=== PATIENT | female | born 1955 | race Two or more races ===

== ENCOUNTER 2025-02-09 10:16 | Inpatient (IN) | payer MEDICAID, SELFPAY ==
[2025-02-09] VITALS (12 sets, daily range): BP systolic 157–226; BP diastolic 64–96; PULSE 57–150; RESP 17–94; TEMP 36.6–37; O2SAT 92–95; BMI 29.8
--- NOTE | 2025-02-09 11:29 | XR_ITS ---
Examination: PA lateral chest 2 views TECHNIQUE: Upright PA lateral chest 2 views Exam date and time: February 09, 2025 1142 hours INDICATIONS: Chest pain today. FINDINGS: Mild prominence of ventricle Minor atelectasis left base No lobar pneumonia or pulmonary edema IMPRESSION: No lobar pneumonia or pulmonary edema
--- NOTE | 2025-02-09 11:33 | EDNOTE_ITS ---
ED Chest Pain RME/HPI General Chief Complaint: Chest Pain Stated Complaint: CHEST PAIN AND SOB Time Seen by Provider: 02/09/25 11:22 Arrival date/time: 02/09/25 10:16 69 year old female present to emergency room via EMS with PMHX of HTN, c/o of chest pain starting yesterday but worsen this morning Pt report being complaint with her blood pressure medication and has not had a stress test in the past. denies any history of stress test or mi. LOCATION: Chest SEVERITY: Symptoms are described as being severe with limitations on activities of daily living CONTEXT: The patient is unable to identify any inciting events. DURATION/TIMING: The symptoms started approximately 1 day ASSOCIATED SYMPTOMS: The patient is unable to identify any other associated symptoms. MODIFYING FACTORS: The patient is unable to identify any alleviating or aggravating symptoms. PERTINENT ROS: no fevers, no cough, no pleuritic pain, no ripping or tearing sensations, denies any lower extremity edema and no unilateral swelling, no nausea,vomiting, diarrhea, no dizziness/headache no rash no loc/syncope episode no abd/back pain REVIEW OF SYSTEMS: See History of Present Illness - with the exception of those mentioned in the history of present illness, all other systems reviewed and reported as negative GENERAL: In general the patient is awake, interactive, in an emergency department gurney. HEAD/EYES/EARS/NOSE/THROAT: normo-cephalic, atraumatic, mucus membranes are moist, anicteric, palpebral conjunctiva is pink, trachea is midline. CARDIOVASCULAR: regular rate and regular rhythm, no murmurs, heart sounds are not distant, strong pulses in all four extremities that are equal and symmetric bilateral upper and lower extremities, normal capillary refill. CHEST/PULMONARY: normal chest rise and fall, good air movement, clear to auscultation bilaterally, normal inspiratory to expiratory ratios without evidence of respiratory distress. NECK: No midline/Paraspinal tenderness, no step off ROM/Strenght intact No Kernig and bruzinski sign. No trauma ABDOMEN: soft, not tender, no masses appreciated BACK: normal range of motion without pain. NEUROLOGICAL: cranio-facial features are symmetric, moves all four extremities equally without obvious limitations or weakness. EXTREMITY: no tenderness to palpation over the long bones or large joints of the bilateral upper and lower extremities, no joint swelling, no joint erythema, no signs of trauma, no unilateral leg swelling and no peripheral edema. SKIN: warm, dry, well-perfused, no jaundice, no rash, no telangiectasias or petechia. PSYCH: calm, cooperative, no evidence of psychosis or agitation Related Data Previous Rx's ?Medication ?Instructions ?Recorded cyclobenzaprine 10 mg tablet 10 mg PO TID PRN muscle s pasm #15 01/31/21 tabs ibuprofen 600 mg tablet 600 mg PO Q6H PRN pain #30 t abs 01/31/21 tramadol 37.5 mg-acetaminophen 325 1 tab PO BID PRN pa in #30 tabs 07/21/22 mg tablet (Ultracet) Allergies Allergy/AdvReac Type Severity Reaction Status Date / Time No Known Allergies Allergy Verified 07/21/22 11:56 Course Course Course Narrative: Basic labs, Cxr, EKG, hydralazine 10mg aspirin 324 Quality Measures none Orders Category Date Time Status EKG (ED ONLY) *Do not use* NOW Care 02/09/25 12:56 Completed Consult to Cardiology Stat Cons 02/09/25 13:06 Ordered EKG (ED Only) Stat Exams 02/09/25 12:56 Draft XR chest 2V Stat Exams 02/09/25 11:29 Completed BNP [B-Type Natriuretic Peptide] Stat Lab 02/09/25 12:03 Completed CBC Stat Lab 02/09/25 12:03 Completed CMP [Comprehensive Metabolic Panel] Stat Lab 02/09/25 12:03 Completed Lipase Stat Lab 02/09/25 12:03 Completed Mag [Magnesium] Stat Lab 02/09/25 12:03 Completed Troponin I Stat Lab 02/09/25 12:03 Completed Troponin I Stat Lab 02/09/25 13:30 Ordered Aspirin Chew Med 02/09/25 12:58 Discontinued 324 mg PO X1 ONE Magnesium Oxide [Mag-Ox 400] Med 02/09/25 12:50 Discontinued 400 mg PO X1 ONE hydrALAZINE INJ [Apresoline Inj] Med 02/09/25 11:34 Discontinued 10 mg IV X1 ONE Reevaluation(s) Reevaluation #1: pt report chest pain, ongoing and comfortable to stay in hosptial for evaluation Vital Signs Vital signs: Vital Signs Temperature 98.6 F 02/09/25 10:55 Pulse Rate 89 02/09/25 10:55 Respiratory Rate 18 02/09/25 10:55 Blood Pressure 226/85 H 02/09/25 10:55 Pulse Oximetry (%) 95 02/09/25 10:55 Oxygen Delivery Method Room Air 02/09/25 10:55 Procedures -ED EKG Interpretation #1: Date of EK02/09/25 Time of EK:54 Rate: 125 Interpretation: Reviewed by me EKG Impression: Sinus tachycardia #2: Date of EK02/09/25 Rate: 74 Interpretation: Reviewed by me EKG Impression: Normal sinus rhythm, No acute ST-T changes, No ectopy, No ischemic changes, Normal QRS and Normal intervals Chest Pain MDM Narrative MDM Narrative:: DISPOSITION: Emergency Department nursing documentation was reviewed including triage complaint, associated symptoms, administration of medications, response to therapy and vital signs. Given the history, physical exam, and review of laboratory and imaging studies the patient is determined to be unsafe for discharge and is being moved into the hospital for further diagnostic tests, treatments, stabilization, and monitored response to therapy. I communicated the history, physical exam, pertinent laboratory and imaging studies to the inpatient physician. The inpatient physician has access to electronic copies of all emergency department laboratory testing and imaging studies as well as medications ordered and administered. Patient data External records reviewed:: [facility] previous records Clinical information provided by:: patient and EMS Social determinants that could affect healthcare access:: none Patient has the following chronic illnesses:: HTN How is presenting disease/condition affected by chronic disease/condition?: exacerbated by Evaluation data The following diagnostics were reviewed and interpreted by me:: lab results, radiology exam(s) and EKG tracing(s) Lab and/or radiology exams considered but not ordered:: n/a Interpretation Summary: cbc: wnl cmp wnl trop .086 mg 1.4 given 400mg lipase cxr:nad Medications / Prescriptions Medications or Prescriptions considered but not ordered:: n/a Medication administrations:: Medication Administration History Discontinued Medications Aspirin (Aspirin 81 Mg Chew) 324 mg PO X1 ONE Stop: 02/09/25 12:59 Last Admin: 02/09/25 13:08 Dose: 324 mg Documented By: LP Hydralazine HCl (Hydralazine Inj 20 Mg/Ml Vial) 10 mg IV X1 ONE Stop: 02/09/25 11:35 Last Admin: 02/09/25 12:07 Dose: 10 mg Documented By: LP Magnesium Oxide (Magnesium Oxide 400 Mg Tablet) 400 mg PO X1 ONE Stop: 02/09/25 12:51 Last Admin: 02/09/25 13:08 Dose: 400 mg Documented By: TRA as stated above Consultations Consultation(s) initiated? (list below): Yes Consultation #1 (Physician, Specialty, Details): [address] Bradshaw, will come in for consult Consultation #2 (Physician, Specialty, Details): [address] Rodriguez accept patient for admission Diagnosis Chest Pain Differential Diagnosis: pneumothorax, stable angina, unstable angina pectoris, atypical chest pain, st elevation myocardial infarction, costochondritis, chest pain and biliary colic Most likely diagnosis given after review of the tests above:: nstemi Admission Indicated Admission indicated?: indicated Admission Request Was there a request for admission?: Yes Admission Attestation Admission request attestation: Discussed case with [hamilton ] from Hospitalist service regarding admission. Discussed patients ED course, exam findings, labs, and radiology results. The Hospitalist [agrees,] to accept the patient for admission. Disposition Plan Disposition Plan: Admit Discharge Plan Plan Patient Disposition: Admit Acute Care w/in Hospital Prescriptions/Referrals Prescriptions/Med Rec: No Action ibuprofen 600 mg tablet 600 mg PO Q6H PRN (Reason: pain) Qty: 30 0RF cyclobenzaprine 10 mg tablet 10 mg PO TID PRN (Reason: muscle spasm) Qty: 15 0RF tramadol-acetaminophen [Ultracet] 37.5-325 mg tablet 1 tab PO BID PRN (Reason: pain) Qty: 30 0RF Referrals: Katharine Erickson FNP [Primary Care Provider] - In 1 week Problem List Clinical Impression: Non-ST elevation LA (NSTEMI) Patient/Caregiver Discharge Instructions Print Language: Latvian Stand Alone Forms: Christina Award Info., Patient Portal Info Letter
[2025-02-09] MEDS: hydrALAZINE INJ 20 MG/ML VIAL 10 MG IV (12:07)
[2025-02-09 12:20] LABS: Basophils # (Auto) 0.1 Thou/mm3 (0.0-0.2); Basophils % (Auto) 1 % (0-2.5); Eosinophils % (Auto) 1 % (0-10); Hematocrit 33.2 % (36.0-46.0); Immature Granulocytes % (Auto) 0 % (0-0); Immature Granulocytes Auto 0.03 Thou/mm3 (0.00-0.00); Lymphocytes # (Auto) 1.4 Thou/mm3 (1.0-4.8); Lymphocytes % (Auto) 17 % (10-50); Mean Corpuscular HGB Conc 33.1 g/dl (31.0-37.0); Mean Corpuscular Hemoglobin 27.8 pg (25.0-35.0); Mean Corpuscular Volume 84 fL (80-100); Monocytes # (Auto) 0.4 Thou/mm3 (0.0-0.8); Monocytes % (Auto) 5 % (0-12); Neutrophils # (Auto) 6.6 Thou/mm3 (1.8-7.7); Neutrophils % (Auto) 77 % (37-80); Nucleated Red Blood Cell % 0 /100 WBC (0); Platelet Count 292 Thou/mm3 (140-440); RDW Standard Deviation 42.3 fL (36.4-46.3); Red Blood Count 3.95 Miln/mm3 (4.00-5.20); White Blood Count 8.6 Thou/mm3 (3.6-11.0)
[2025-02-09 12:41] LABS: B-Type Natriuretic Peptide 195 pg/mL (0-100)
[2025-02-09 12:45] LABS: Alanine Aminotransferase 28 U/L (10-49); Albumin, Serum 4.1 gm/dL (3.4-4.8); Albumin/Globulin Ratio 1.6 (1.2-2.2); Alkaline Phosphatase 56 U/L (46-116); Anion Gap 10 (7-16); Aspartate Amino Transferase 31 U/L (0-34); BUN/Creatinine Ratio 22 Ratio (12-20); Bilirubin,Total 1.1 mg/dL (0.3-1.2); Blood Urea Nitrogen 13 mg/dL (9-23); Calcium 9.4 mg/dL (8.3-10.6); Calcium (Corrected) 9.4 mg/dL (8.5-10.1); Carbon Dioxide 26.9 mMol/L (20.0-31.0); Chloride 108 mMol/L (98-107); Creatinine (Component) 0.6 mg/dL (0.6-1.3); Estimated Creatinine Clearance 82.1 mL/min (>60); Globulin 2.5 gm/dL (2.3-3.5); Glucose 91 mg/dL (74-106); Lipase 35 U/L (12-53); Magnesium 1.4 mg/dL (1.6-2.6); Osmolality,Calculated 288 (275-295); Potassium 3.6 mMol/L (3.4-5.1); Sodium 145 mMol/L (136-145); Total Protein 6.6 gm/dL (5.7-8.2); eGFR > 60 See Note
[2025-02-09 12:47] LABS: Troponin I 0.086 ng/mL (0.0-0.045)
--- NOTE | 2025-02-09 12:52 | PC.NURSE ---
CALL FROM [facility] IN LAB; TROPONIN 0.09. PROVIDER JANINE LINDSAY.
--- NOTE | 2025-02-09 12:56 | EKG_ITS ---
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
[2025-02-09] MEDS: MAGNESIUM OXIDE 400 MG TABLET PO (13:08)
[2025-02-09] MEDS: ASPIRIN 81 MG CHEW 324 MG PO (13:08)
--- NOTE | 2025-02-09 14:00 | PD.RESCONSUL ---
HPI Data of Consult Primary Care Provider: LUCIE Grace Consult Narrative History of present illness: Mr. Mensah is a 69-year-old female with past medical history of hypertension, dyslipidemia, depression, seasonal allergies and personal history of hemorrhage status post mathieu hole procedure 10 to 15 years ago at [place] who presented to [facility] emergency department on 02/09/2025 with a chief complaint of left-sided chest pain. Patient reported that her chest pain started at around 8:30 AM this morning, localized to left side nonradiating /10 describes it as a pressure-like sensation and palpitations has no alleviating or aggravating symptoms, reports that she currently still has the chest pain is 6/10 on the left side. Patient reports taking nitroglycerin tablet for chest pain with no improvement in her symptoms. She also complains of elevated blood pressure, reports being compliant with her hypertensive medications, took her last medications this morning, follows primary care physician. Patient is unable to provide details about her home medications, does report taking antihypertensive meds, statin, aspirin daily and medication for constipation as needed. Patient otherwise denies any shortness of breath, orthopnea, bilateral lower extremity swelling, dizziness, syncope, near syncope, headache, nausea, vomiting, abdominal pain and recent falls. ED Course: ED Vitals: On presentation in ED blood pressure 226/85 heart rate 89, respiratory rate 18, temp 98.6, O2 sat 95 on room air ED Labs: ED labs significant for RBC 3.95, hemoglobin 11.0, hematocrit 33.2, chloride 108, magnesium 1.4, BNP 195 troponin 0.086 ED Imaging:EKG in ED shows sinus rhythm, heart rate [address]-T changes noted.Chest x-ray in ED shows no lobar pneumonia or pulmonary edema, mild prominence of ventricle seen. ED Treatment:Patient was given hydralazine 10 mg IV x 1, magnesium oxide 400 mg p.o. x 1 and aspirin 324 mg x 1 in emergency department. Cardiology was consulted due to elevated troponin and typical chest pain. cc:: cc: Review of Systems Review of Systems Narrative Review of Systems: ROS: -CONSTITUTIONAL: Denies weight loss, fever and chills. -HEENT: Denies changes in vision and hearing. -RESPIRATORY: Denies SOB and cough. -CV: Positive for palpitations and Chest Pain. -GI: Denies abdominal pain, nausea, vomiting and diarrhea. Positive for constipation. -: Denies dysuria and urinary frequency. -MSK: Denies myalgia and joint pain. -SKIN: Denies rash and pruritus. -NEUROLOGICAL: Denies headache and syncope. -PSYCHIATRIC: Denies recent changes in mood. Denies anxiety and depression. Past Medical History Past Medical History Comments PMH COMMENT: PMH: Positive for hypertension, dyslipidemia, seasonal allergies, ?depression/anxiety PSHx: [place] hole procedure at [place] to drain hemorrhage 10 to 15 years ago, denies any fall/trauma at that time reported was seen at [facility] and was transferred to [place]. Allergies: Food allergies-Milk, some fruits. 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 Conversational and non-toxic appearing. HEENT: Normocephalic, atraumatic, mucous membranes moist. Heart: Regular rate and rhythm, + murmur in aortic area. Lungs: Clear to auscultation with no wheezing or crackles. Abdomen: Soft, nondistended, nontender, positive bowel sounds. ?No guarding or rebound tenderness. Neurologic: Alert and oriented x3, no gross neurological deficit, and patient able to move all 4 extremities. Extremities: No edema. Skin: No rash or ecchymoses. Results Labs 02/09/25 12:03 02/09/25 12:03 Labs: Short CBC 02/09/25 Range/Units 12:03 WBC 8.6 (3.6-11.0) Thou/mm3 Hgb 11.0 L (12.0-16.0) g/dL Hct 33.2 L (36.0-46.0) % Plt Count 292 (140-440) Thou/mm3 BMP 02/09/25 12:03 Sodium 145 Potassium 3.6 Chloride 108 H Carbon Dioxide 26.9 BUN 13 Creatinine 0.6 Glucose 91 Calcium 9.4 Cardiac Enzymes 02/09/25 Range/Units 12:03 Troponin I 0.086 H* (0.0-0.045) ng/mL Liver Function 02/09/25 Range/Units 12:03 Total Bilirubin 1.1 (0.3-1.2) mg/dL AST 31 (0-34) U/L ALT 28 (10-49) U/L Alkaline Phosphatase 56 (46-116) U/L Albumin 4.1 (3.4-4.8) gm/dL Quality Measures Quality Measures none Advance care planning discussed with:: patient Medications Home Medications and Allergies Allergies Allergy/AdvReac Type Severity Reaction Status Date / Time No Known Allergies Allergy Verified 07/21/22 11:56 Visit Medications Discontinued Medications Aspirin (Aspirin 81 Mg Chew) 324 mg PO X1 ONE Stop: 02/09/25 12:59 Last Admin: 02/09/25 13:08 Dose: 324 mg Hydralazine HCl (Hydralazine Inj 20 Mg/Ml Vial) 10 mg IV X1 ONE Stop: 02/09/25 11:35 Last Admin: 02/09/25 12:07 Dose: 10 mg Magnesium Oxide (Magnesium Oxide 400 Mg Tablet) 400 mg PO X1 ONE Stop: 02/09/25 12:51 Last Admin: 02/09/25 13:08 Dose: 400 mg Assessment & Plan Plan Assessment and Plan: Summary: Mr. Mensah is a 69-year-old female with past medical history of hypertension, dyslipidemia, depression, seasonal allergies and personal history of hemorrhage status post mathieu hole procedure 10 to 15 years ago at [place] who presented to [facility] emergency department on 02/09/2025 with a chief complaint of left-sided chest pain. Patient admitted to hospital for ACS, cardiology consulted for recommendations. #Elevated Troponins - Mostly NSTEMI type II -Mostly secondary to uncontrolled blood pressure. #Acute coronary syndrome #Atypical chest pain Patient presented with left-sided nonradiating chest pain not alleviated with nitroglycerin at home, describes it as a pressure-like sensation on left side of chest 10 on 10 and has improved to 6/10. Not related to exertion or rest. constant pain. sublingual nitroglcerin did not help. EKG in ED shows sinus rhythm, no acute ST?T changes, troponin elevation noted at 0.086->0.187. Mostly secondary to uncontrolled blood pressure. Patient did have blood pressure 226/85 on presentation, on assessment at bedside patient's systolic blood pressure still more than 200, was given hydralazine 10 mg IV x 1 in emergency department, patient continues to complain of chest pain. HAROON score- 85 points, low risk category, less than 1% in hospital mortality, low risk 6-month post discharge mortality, less than 3% probability of post discharge to 6 months Patient is unable to provide details of home medication for high blood pressure, per med reconciliation review patient on hydralazine 50 mg 3 times daily, hydrochlorothiazide 50 mg daily, irbesartan 300 mg daily, metoprolol succinate 200 mg daily, nitroglycerin 0.4 mg as needed, aspirin 81 mg daily, spironolactone 25 mg daily. Recommendations: -Trend troponin every 6 hour -Consider repeating EKG/troponin if patient develops worsening chest pain -Will follow serial troponin level. -Aspirin 81 mg daily -Control blood pressure, consider starting patient on losartan/HCTZ 50?12.5 combination pill and Coreg 12.5 mg twice daily. -Ordered echocardiogram to assess for any regional wall abnormalities, LV/RV function. -Ordered TSH, free T4, lipid panel and A1c for risk stratification #Hypertensive emergency #Hypertension Patient had blood pressure 226/85 on presentation, per med reconciliation review patient on hydralazine 50 mg 3 times daily, hydrochlorothiazide 50 mg daily, irbesartan 300 mg daily, metoprolol succinate 200 mg daily, nitroglycerin 0.4 mg as needed, aspirin 81 mg daily, spironolactone 25 mg daily. Patient currently denies any other symptoms other than chest pain, denies any headache, does have personal history of hemorrhage status post mathieu hole procedure 10 to 15 years ago at [place]. Recommendations: -Underlying elevated troponin and chest pain possibly secondary to hypertensive emergency, suspicion of NSTEMI type II -Control blood pressure, consider starting patient on losartan/HCTZ 50?12.5 combination pill and Coreg 12.5 mg twice daily. -Reduce blood pressure gradually to avoid organ ischemia, lower mean arterial pressure no more than 20-25% in the next couple of hours, monitor closely. -Consider CT scan of head if patient develops worsening headache -Pending med reconciliation. #Normocytic normochromic anemia Patient's hemoglobin 11.0, hematocrit 33.2, RBC 3.95, MCV 84, MCH 27.8, MCHC 33.1 -Consider outpatient workup #Electrolyte imbalance #Hypomagnesemia -Replace electrolytes as needed -Keep potassium more than 4 and magnesium more than 2 at all times #Dyslipidemia Started on atorvastatin 80 mg at bedtime, continue Follow lipid panel in a.m. #Depression Home medication resumed by primary team Thank you for the consult and allowing to participate in the care of the patient. Cardiology will continue to follow. Case discussed with Attending Dr. Bradshaw. Daniel Matias PGY1 Disclaimer: This note was dictated by speech recognition. 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 Attending Provider Attestation/Addendum I have personally seen and examined the patient separately on the above date of service and discussed the plan of care with the resident. I reviewed the resident Dr. Daniel Matias consultation note and agree with the resident findings and plan in the note above and have also edited the documentation to reflect my findings and plan. Bob Bradshaw M.D. Interventional Cardiology
--- NOTE | 2025-02-09 14:11 | ECHO_ITS ---
Transthoracic Echo Report Ht (in): 62 Wt (lb): 163 Exam Location: Portable Status: Emergency Director Of Special Events: CAMACHO Fonseca^^^^ Indications: Procedure Performed: BP: / HR: 63 Technical Quality: Fair MEASUREMENTS (Male / Female) Normal Values 2D ECHO LV Diastolic Diameter PLAX 4.3 cm 4.2 - 5.9 / 3.9 - 5.3 cm LV Systolic Diameter PLAX 3.0 cm IVS Diastolic Thickness 1.0 cm 0.6 - 1.0 / 0.6 - 0.9 cm LVPW Diastolic Thickness 1.1 cm 0.6 - 1.0 / 0.6 - 0.9 cm LV Relative Wall Thickness 0.5 LVOT Diameter 1.6 cm Aortic Root Diameter 2.5 cm LA Systolic Diameter LX 4.3 cm 3.0 - 4.0 / 2.7 - 3.8 cm LA Volume Index 48.3 cm?/m? 16 - 28 cm?/m? DOPPLER AV Peak Velocity 173.0 cm/s AV Peak Gradient 12.0 mmHg AV Mean Gradient 7.0 mmHg AV Velocity Time Integral 44.9 cm LVOT Peak Velocity 107.0 cm/s LVOT Peak Gradient 4.6 mmHg LVOT Velocity Time Integral 27.3 cm LVOT Cardiac Index 1895.9 cm?/min?m? AV Area Cont Eq vti 1.2 cm? AV Area Cont Eq pk 1.2 cm? MV Peak Velocity 125.0 cm/s MV Peak Gradient 6.3 mmHg MV Mean Velocity 69.2 cm/s MV Mean Gradient 2.0 mmHg MV Area PHT 2.4 cm? MR Peak Velocity 413.0 cm/s MR Peak Gradient 68.2 mmHg Mitral E Point Velocity 80.1 cm/s Mitral A Point Velocity 71.8 cm/s Mitral E to A Ratio 1.1 LV E' Lateral Velocity 6.1 cm/s Mitral E to LV E' Lateral Ratio 13.1 LV E' Septal Velocity 6.5 cm/s Mitral E to LV E' Septal Ratio 12.3 TR Peak Velocity 253.5 cm/s TR Peak Gradient 25.7 mmHg PV Peak Velocity 90.4 cm/s PV Peak Gradient 3.3 mmHg RVOT Peak Velocity 54.7 cm/s FINDINGS Left Ventricle Normal left ventricular size, wall thickness, systolic function with no obvious regional wall motion abnormalities. There is grade II diastolic dysfunction of the left ventricle (pseudonormal filling pattern). . The ejection fraction is visually estimated at 60-65 %. Right Ventricle The right ventricle is normal in size and systolic function. The estimated right ventricular systolic pressure, 27 mmHg. Left Atrium Mildly increased left atrial volume 48.3 mL/m?. Right Atrium The right atrium is normal by two-dimensional imaging, color flow and Doppler imaging with no structural abnormalities, no thrombus formation present. Atrial Septum The interatrial septum appears normal with no evidence of a shunt. Aorta The aorta is normal by two-dimensional, color flow and Doppler interrogation. Mitral Valve Mild thickening of the mitral valve leaflets.mild mitral regurgitation. Mild mitral annular calcification. Aortic Valve Aortic valve sclerosis. Tricuspid Valve There is mild tricuspid valve regurgitation. Pulmonic Valve The pulmonic valve is not well visualized. There is no significant pulmonic valve regurgitation. Vessels The pulmonary artery appears normal. The inferior vena cava pulmonary and hepatic veins appear normal. Pericardium The pericardium is normal by two-dimensional imaging. There is no significant pericardial effusion. CONCLUSIONS Indication: Chest pain and elevated troponins Normal LV size and function with an EF of 60 to 65%. Stage II diastolic dysfunction. Mild LVH Normal RV size and function. Estimated RVSP normal at 30 mmHg. Mildly dilated LA, mild MR and mild MAC. Mild aortic sclerosis without stenosis. Mild TR Bob Bradshaw (Electronically Signed) Final Date: 10 February 2025 08:18
--- NOTE | 2025-02-09 14:19 | ESHP_ITS ---
<Statement entered by Chantelle Magana MD - 02/09/25 16:28> I discussed with and supervised the purchasing internship physician who took care of this patient. I personally saw and examined the patient and discussed the assessment and plan with the entire medicine team, including my attending , I agree with most of the assessment and plan as documented below Patient is a 69-year-old woman with past medical history of hypertension, CKD, history of CVA who came to the ED with chief complaint of chest pain and will be admitted for further workup of unstable angina and hypertensive emergency. Patient's states her home nitroglycerin SL has helped relieve the pain significantly. V/S in the ED was 226/85 with HR of 89, saturating 94% no RA. CXR was unremarkable. Troponins are uptrending, will f/u Q6H. Cardiology consulted, pending recs. Will resume most of her home anti-hypertensives and pain meds PRN. Chantelle Magana, PGY-2 <Statement entered by Coco Zeng MD - 02/09/25 15:26> I discussed with and supervised the purchasing internship physician who took care of this patient. I personally saw and examined the patient and discussed the assessment and plan with the entire medicine team, including my attending Dr. Rodriguez, I agree with the assessment and plan as documented below 69-year-old woman with past medical history of hypertension, CKD, history of CVA who came to the ED with chief complaint of chest pain. Patient stated that her symptoms started this morning as she was feeling weird with tremors and later she developed nausea associated to chest pain that she describes as stabbing sensation and pressure-like pain 10/10 associated to left upper extremity numbness. 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 Patient stated that she took 2 nitro pills that relieve her pain. On admission patient blood pressure was around 226/85 with heart rate 89 saturating 95% on room air, troponins 0.086, BNP 195, EKG shows sinus rhythm without ST changes or T wave inversions per my interpretation. Chest x-ray was unremarkable. At the ED patient received hydralazine IV x 1. Cardiology was consulted and patient was admitted for further treatment and management of hypertensive emergency and unstable angina. Coco Zeng MD PGY-3 Disclaimer: Despite multiple revisions, due to the dictation software being used, the document bellow may not be free of grammatical errors including phonetic/typographic errors. However, this does not deter from our commitment to providing health care in the patient's best interest in mind. Documentation for date of: 02/09/25 HPI History of Present Illness Chief complaint: Chest pain History of present illness: 69-year-old female with past medical history of hypertension, CKD seen by Dr. Villatoro, history of CVA (15 years ago) who presented to the ED due to chest pain. Patient woke up this morning feeling strange saying she was having tremors or shakiness in her upper extremities, patient ignored sensation and started to make breakfast and started developing nausea which progressed to chest pain. Chest pain is described as stabbing and pressure-like 10 out of 10 with associated left upper extremity numbness. Patient has had episodes of chest pain previously sees a motorcycle [place]er [place] who prescribed her nitroglycerin which patient took 2 nitroglycerin and felt some relief at the time. On arrival to the hospital patient developed shortness of breath and chest pain. Denies fever, chills, vomiting, abdominal pain, orthopnea, PND. Cardiology was consulted and patient will be admitted for ACS rule out. ED course: Vitals on arrival significant for 226/85, HR 89, saturating 95% on room air. Labs significant for hemoglobin 11, chloride 108, magnesium 1.4, troponin 0.086, BNP 195. EKG showed sinus rhythm with no ST segment changes. Chest x-ray was negative for pneumonia. PMHx: As above SxHx: C-sections Social Hx: Denies smoking, denies alcohol use, denies any illicit substances including THC FHx: Unknown Review of Systems Review of Systems Narrative Review of Systems: Narrative ROS GENERAL: Denies fevers/chills or diaphoresis. HEENT: Denies headache or visual/hearing changes. Denies nasal discharge. NEURO: Denies unusual weakness or difficulty speaking. CARDIO: + chest pain or palpitations. PULM: Denies SOB, coughing, or wheezing. GI: Denies abdominal pain, N/V/C/D/reflux/gas, bright red blood per rectum or melena. Reports having BMs. URO: Denies burning/itching/pain/urinary changes. MSK/EXT/SKIN: Denies joint/skeletal/muscle pain, issues/changes in upper or lower extremities, itchiness, or superficial pain. PSYCH: Cooperative, pleasant mood & affect. The rest of the review of systems is otherwise negative. Exam Vital Signs Temp Pulse Resp BP Pulse Ox O2 Del Method 98.6 F 65 18 197/75 H 95 Room Air 02/09/25 10:55 02/09/25 12:07 02/09/25 10:55 02/09/25 12:07 02/09/25 10:55 02/09/25 10:55 Narrative Exam Physical Exam GENERAL: NAD, AAOx3 HEENT: Moist mucosa. Eyes open, symmetrical, & clear CARDIO: Heart RRR, no obvious murmurs PULM: No noted coughing/dyspnea CTA B/L, no R/W/R GI: Abdomen soft, nondistended, no pain on palpation. BSx4 SKIN/MSK/EXT: No wounds/rashes/edema/amputations, no pain on palpation. Pedal pulses present B/L NEURO: AAOx3, no focal neuro deficits, able to move all 4 extremities Results: Labs 02/10/25 05:09 02/10/25 05:09 Labs: Short CBC 02/09/25 Range/Units 12:03 WBC 8.6 (3.6-11.0) Thou/mm3 Hgb 11.0 L (12.0-16.0) g/dL Hct 33.2 L (36.0-46.0) % Plt Count 292 (140-440) Thou/mm3 BMP 02/09/25 12:03 Sodium 145 Potassium 3.6 Chloride 108 H Carbon Dioxide 26.9 BUN 13 Creatinine 0.6 Glucose 91 Calcium 9.4 Cardiac Enzymes 02/09/25 Range/Units 12:03 Troponin I 0.086 H* (0.0-0.045) ng/mL Liver Function 02/09/25 Range/Units 12:03 Total Bilirubin 1.1 (0.3-1.2) mg/dL AST 31 (0-34) U/L ALT 28 (10-49) U/L Alkaline Phosphatase 56 (46-116) U/L Albumin 4.1 (3.4-4.8) gm/dL Quality Measures Quality Measures VTE prophylaxis and none Advance care planning discussed with:: patient Medications Home Medications and Allergies Allergies Allergy/AdvReac Type Severity Reaction Status Date / Time No Known Allergies Allergy Verified 02/09/25 21:37 Visit Medications Acetaminophen (Acetaminophen 325 Mg Tablet) 650 mg PO Q6H PRN PRN Reason: Fever >101.5 Stop: 03/11/25 14:10 Acetaminophen (Acetaminophen 325 Mg Tablet) 650 mg PO Q6H PRN PRN Reason: PAIN SCALE 1-3 (mild Stop: 03/11/25 14:10 Aspirin (Aspirin Ec 81 Mg Tabec) 81 mg PO QDAY [facility] Stop: 03/12/25 08:59 Atorvastatin Calcium (Atorvastatin Calcium 20 Mg Tablet) 80 mg PO HS [facility]1983 Stop: 03/11/25 20:59 Docusate Sodium (Docusate Sod 100 Mg Capsule) 100 mg PO QDAY [facility]; Protocol Stop: 03/12/25 08:59 Heparin Sodium (Porcine) (Heparin Sod Inj 5000 Unit/Ml Vial) 4,000 unit IV X1 ONE; Protocol Stop: 02/09/25 14:17 Heparin Sodium/Dextrose (Heparin In D5w Ivpb) 25,000 unit in 250 mls @ 8.872 mls/hr IV .Q24H GRACE; Protocol Stop: 02/23/25 14:29 Ondansetron HCl (Ondansetron Inj 2 Mg/Ml Inj 2 Ml) 4 mg IV Q6H PRN; Protocol PRN Reason: NAUSEA OR VOMITING Stop: 03/11/25 14:10 Pantoprazole Sodium (Pantoprazole Inj 40 Mg Vial) 40 mg IVP QDAY [facility] Stop: 03/12/25 08:59 Sennosides (Senna Tablet) 1 tab PO QDAY [facility]; Protocol Stop: 03/12/25 08:59 Discontinued Medications Aspirin (Aspirin 81 Mg Chew) 324 mg PO X1 ONE Stop: 02/09/25 12:59 Last Admin: 02/09/25 13:08 Dose: 324 mg Hydralazine HCl (Hydralazine Inj 20 Mg/Ml Vial) 10 mg IV X1 ONE Stop: 02/09/25 11:35 Last Admin: 02/09/25 12:07 Dose: 10 mg Magnesium Oxide (Magnesium Oxide 400 Mg Tablet) 400 mg PO X1 ONE Stop: 02/09/25 12:51 Last Admin: 02/09/25 13:08 Dose: 400 mg Assessment & Plan Plan 69-year-old female with past medical history of hypertension, CKD seen by Dr. Villatoro, history of CVA (15 years ago) who presented to the ED due to chest pain. Patient woke up this morning feeling strange saying she was having tremors or shakiness in her upper extremities, patient ignored sensation and started to make breakfast and started developing nausea which progressed to chest pain. Chest pain is described as stabbing and pressure-like 10 out of 10 with associated left upper extremity numbness. Patient has had episodes of chest pain previously sees a motorcycle assembler [place] [employer] who prescribed her nitroglycerin which patient took 2 nitroglycerin and felt some relief at the time. On arrival to the hospital patient developed shortness of breath and chest pain. Denies fever, chills, vomiting, abdominal pain, orthopnea, PND. Cardiology was consulted and patient will be admitted for ACS rule out. #Hypertensive emergency On admission blood pressure 226/85 Patient received hydralazine 10 mg IV x 1 Patient states she is compliant with all her blood pressure medications ? Losartan 50 mg daily ? Coreg 12.5 mg twice daily, starting tomorrow or when blood pressure permits ? Metoprolol succinate XL 200 mg daily starting tomorrow whenever BP and heart rate permit ? Hydralazine 50 mg 3 times daily ? Hydralazine 10mg IV as needed ? Spironolactone 25 mg daily #Unstable angina #Elevated troponins At home patient had 2 nitroglycerin which relieved the chest pain In ED patient received aspirin 324 Initial troponins mildly elevated 0.086 Patient has had episodes of chest pain previously sees a motorcycle assembler [place] [employer] who prescribed her nitroglycerin which patient took 2 nitroglycerin and felt some relief at the time. EKG shows sinus rhythm, no ST segment changes ? Trend troponins ? Aspirin 81 mg ? Atorvastatin ? Follow-up TSH, A1c, lipid panel ? Cardiology consulted, appreciate recommendations ? Echo ordered ? K > 4, Mg >2 #History of depression ? Started on fluoxetine 20 mg daily Case discussed with my senior Dr. Magana PGY-2, Dr. Zeng PGY-[address] Michael Gambino MD PGY-1 Disposition: Telemetry Fluids: None Feeding: Cardiac diet Thrombo prophylaxis: Heparin Gastric Ulcer prophylaxis: Pantoprazole CODE STATUS: DNR Attending Provider Attestation/Addendum I have examined the patient, reviewed labs and imaging findings, discussed the case with the resident(s), and reviewed entered orders. I agree with the plan of care as outlined in this note. Dr. Michael MD
[2025-02-09 14:22] LABS: Troponin I 0.187 ng/mL (0.0-0.045)
--- NOTE | 2025-02-09 14:35 | PC.NURSE ---
RECEIVED CALL FROM ZENON IN LAB AT 14:22 W/ TROPONIN OF 0.19. DR. DONAHUE INFORMED OF TROPONIN OF 0.19 AND THE ORDER WANTING ANOTHER TROPONIN DRAWN AT 14:15. SHE SAID IT DID NOT NEED TO BE DRAWN AGAIN SO SOON AND THAT THEY WOULD CANCEL THAT ORDER AND PUT IN OTHER ORDERS FOR THE TROPONIN DRAW. WILL INFORM SENIOR REPORT DEVELOPER MERRY OF DC'D ORDER.
--- NOTE | 2025-02-09 14:56 | PC.SS ---
Initial assessment: this is 69 year old female pending admission to med/tele. Patient appears alert and oriented. Patient is Nigerien speaking. Patient reports living at home with spouse and children. Patient confirmed demographic information. Patient assigned her daughterKeke as her alternate medical surrogate decision maker. Patient reports being independent with ADL's. Patient denies the use of DME. Patient follows Dr. Katharine Erickson for primary care. Patient plans to return home upon discharge, informs family is able to transport. No needs identified at this time. medical and health services manager to follow up on discharging needs. D/c plan: home Next of kin: daughterKeke
[2025-02-09] MEDS: Magnesium Sulfate 4 GM Ivpb 4 GM/50 ML BAG IV (15:11)
[2025-02-09] MEDS: LOSARTAN POTASSIUM 25 MG TABLET 50 MG PO (15:11)
[2025-02-09] MEDS: POTASSIUM CHLORIDE 20 mEq TABCR 40 MEQ PO (15:12)
[2025-02-09 15:31] LABS: Partial Thromboplastin Time 25.4 Seconds (22.0-36.0)
[2025-02-09 15:53] LABS: Glucose Estimated Average 108 mg/dL (80-131); Hemoglobin A1C 5.4 % Hgb (4.8-6.0)
[2025-02-09] MEDS: Magnesium Sulfate 2 GM Ivpb 2 GM/50 ML BAG IV (19:04)
[2025-02-09] MEDS: ATORVASTATIN CALCIUM 20 MG TABLET 80 MG PO (20:19)
[2025-02-09] MEDS: hydrALAZINE HCL 25 MG TABLET 50 MG PO (21:31)
[2025-02-09 21:52] LABS: Troponin I 0.055 ng/mL (0.0-0.045)
[2025-02-09] MEDS: HEPARIN SOD INJ 5000 UNIT/ML VIAL SC (23:05)
[2025-02-10] VITALS (20 sets, daily range): BP systolic 127–226; BP diastolic 58–160; PULSE 54–104; RESP 15–97; TEMP 35.9–36.6; O2SAT 92–98; BMI 30.2
[2025-02-10 06:07] LABS: Basophils % (Auto) 1 % (0-2.5); Eosinophils # (Auto) 0.2 Thou/mm3 (0.0-0.5); Eosinophils % (Auto) 4 % (0-10); Hematocrit 32.5 % (36.0-46.0); Hemoglobin 10.7 g/dL (12.0-16.0); Immature Granulocytes % (Auto) 0 % (0-0); Immature Granulocytes Auto 0.01 Thou/mm3 (0.00-0.00); Lymphocytes % (Auto) 35 % (10-50); Mean Corpuscular HGB Conc 32.9 g/dl (31.0-37.0); Mean Corpuscular Hemoglobin 27.9 pg (25.0-35.0); Mean Corpuscular Volume 85 fL (80-100); Monocytes # (Auto) 0.4 Thou/mm3 (0.0-0.8); Monocytes % (Auto) 6 % (0-12); Neutrophils # (Auto) 3.1 Thou/mm3 (1.8-7.7); Neutrophils % (Auto) 54 % (37-80); Nucleated Red Blood Cell % 0 /100 WBC (0); Platelet Count 281 Thou/mm3 (140-440); RDW Standard Deviation 43.3 fL (36.4-46.3); Red Blood Count 3.84 Miln/mm3 (4.00-5.20); White Blood Count 5.8 Thou/mm3 (3.6-11.0)
[2025-02-10] MEDS: hydrALAZINE HCL 25 MG TABLET 50 MG PO ×2 (06:08→21:27)
[2025-02-10] MEDS: HEPARIN SOD INJ 5000 UNIT/ML VIAL SC ×3 (06:09→21:29)
[2025-02-10 06:32] LABS: Alanine Aminotransferase 25 U/L (10-49); Albumin, Serum 3.9 gm/dL (3.4-4.8); Albumin/Globulin Ratio 1.5 (1.2-2.2); Alkaline Phosphatase 54 U/L (46-116); Anion Gap 8 (7-16); Aspartate Amino Transferase 31 U/L (0-34); BUN/Creatinine Ratio 22 Ratio (12-20); Bilirubin,Total 1.2 mg/dL (0.3-1.2); Blood Urea Nitrogen 13 mg/dL (9-23); Calcium 9.3 mg/dL (8.3-10.6); Calcium (Corrected) 9.4 mg/dL (8.5-10.1); Carbon Dioxide 27.7 mMol/L (20.0-31.0); Chloride 107 mMol/L (98-107); Creatinine (Component) 0.6 mg/dL (0.6-1.3); Estimated Creatinine Clearance 82.6 mL/min (>60); Globulin 2.6 gm/dL (2.3-3.5); Glucose 86 mg/dL (74-106); Osmolality,Calculated 284 (275-295); Phosphorous 3.7 mg/dL (2.4-5.1); Potassium 3.7 mMol/L (3.4-5.1); Sodium 143 mMol/L (136-145); Thyroid Stimulating Hormone 2.68 uIU/mL (0.55-4.78); Total Protein 6.5 gm/dL (5.7-8.2); eGFR > 60 See Note
--- NOTE | 2025-02-10 07:23 | ESPR_ITS ---
Documentation for date of: 02/10/25 Subjective Subjective Interval history: Patient seen and examined at bedside. Patient vitals and labs reviewed. Patient had a rapid response earlier this morning cardiac chest pain. Patient reports pressure-like chest pain 10/10 not alleviated with nitroglycerin 2 doses and morphine Patient's blood pressure noted to be 226/160 during a rapid response, EKG remarkable, troponin this morning is negative. Patient was given hydralazine 10 mg IV x 1, was given home medication Losartan 50 mg, spironolactone 25 mg, hydrochlorothiazide 50 mg. Patient did receive Coreg 12.5 mg and hydralazine 50 mg p.o. earlier this morning. ECHO 02/09/25: Normal LV size and function with an EF of 60 to 65%. Stage II diastolic dysfunction. Mild LVH Normal RV size and function. Estimated RVSP normal at 30 mmHg. Mildly dilated LA, mild MR and mild MAC. Mild aortic sclerosis without stenosis. Mild TR Highly recommend optimizing blood pressure control, consider increasing losartan to 100 mg daily, uptitrate Coreg to 25 mg twice daily. Exam Vital Signs Temp Pulse Resp BP Pulse Ox O2 Del Method 97.5 F 58 L 16 151/58 H 96 Room Air 02/10/25 04:00 02/10/25 06:08 02/10/25 04:00 02/10/25 06:08 02/10/25 04:00 02/10/25 04:00 Narrative Exam Physical Exam General: Awake and in no acute distress. Conversational and non-toxic appearing. HEENT: Normocephalic, atraumatic, mucous membranes moist. Heart: Regular rate and rhythm, I/ murmur in aortic area. Lungs: Clear to auscultation with no wheezing or crackles. Abdomen: Soft, nondistended, nontender, positive bowel sounds. ?No guarding or rebound tenderness. Neurologic: Alert and oriented x3, no gross neurological deficit, and patient able to move all 4 extremities. Extremities: No edema. Skin: No rash or ecchymoses. Objective Labs 02/10/25 05:09 02/10/25 05:09 Labs: Laboratory Results - last 24 hr 02/09/25 02/09/25 02/09/25 12:03 13:25 21:05 WBC 8.6 RBC 3.95 L Hgb 11.0 L Hct 33.2 L MCV 84 MCH 27.8 MCHC 33.1 RDW Std Deviation 42.3 Plt Count 292 Neut % (Auto) 77 Lymph % (Auto) 17 [place] % (Auto) 5 Eos % (Auto) 1 Baso % (Auto) 1 Neut # (Auto) 6.6 Lymph # (Auto) 1.4 [place] # (Auto) 0.4 Eos # (Auto) 0.0 Baso # (Auto) 0.1 Immature Gran # (Auto) 0.03 H Absolute Nucleated RBC 0.00 Immature Gran % 0 Nucleated RBC % 0 APTT 25.4 Sodium 145 Potassium 3.6 Chloride 108 H Carbon Dioxide 26.9 Anion Gap 10 BUN 13 Creatinine 0.6 Estim Creat Clear Calc 82.1 eGFR > 60 BUN/Creatinine Ratio [address]ucose [address] Glu mg/dL 108 Hemoglobin A1c 5.4 Calculated Osmolality 288 Calcium 9.4 Corrected Calcium 9.4 Phosphorus Magnesium 1.4 L Total Bilirubin 1.1 AST 31 ALT 28 Alkaline Phosphatase 56 Troponin I 0.086 H* 0.187 H* 0.055 H* B-Natriuretic Peptide 195 H Total Protein 6.6 Albumin 4.1 Globulin 2.5 Albumin/Globulin Ratio 1.6 Lipase 35 TSH // 05:09 WBC 5.8 RBC 3.84 L Hgb 10.7 L Hct 32.5 L MCV 85 MCH 27.9 MCHC 32.9 RDW Std Deviation 43.3 Plt Count 281 Neut % (Auto) 54 Lymph % (Auto) 35 [place] % (Auto) 6 Eos % (Auto) 4 Baso % (Auto) 1 Neut # (Auto) 3.1 Lymph # (Auto) 2.0 [place] # (Auto) 0.4 Eos # (Auto) 0.2 Baso # (Auto) 0.0 Immature Gran # (Auto) 0.01 H Absolute Nucleated RBC 0.00 Immature Gran % 0 Nucleated RBC % 0 APTT Sodium 143 Potassium 3.7 Chloride 107 Carbon Dioxide 27.7 Anion Gap 8 BUN 13 Creatinine 0.6 Estim Creat Clear Calc 82.6 eGFR > 60 BUN/Creatinine Ratio [address] Glucose [address] Glu mg/dL Hemoglobin A1c Calculated Osmolality 284 Calcium 9.3 Corrected Calcium 9.4 Phosphorus 3.7 Magnesium 2.0 Total Bilirubin 1.2 AST 31 ALT 25 Alkaline Phosphatase 54 Troponin I B-Natriuretic Peptide Total Protein 6.5 Albumin 3.9 Globulin 2.6 Albumin/Globulin Ratio 1.5 Lipase TSH 2.68 Quality Measures Quality Measures VTE prophylaxis and none Advance care planning discussed with:: patient Assessment & Plan Assessment Current Active Medications: Generic Name Dose Route Start Last Admin Trade Name Freq PRN Reason Stop Dose Admin Acetaminophen 650 mg 02/09/25 14:11 Acetaminophen 325 Mg Tablet PO 03/11/25 14:10 Q6H PRN Fever >101.5 Acetaminophen 650 mg 02/09/25 14:11 Acetaminophen 325 Mg Tablet PO 03/11/25 14:10 Q6H PRN PAIN SCALE 1-3 (mild Aspirin 81 mg 02/10/25 09:00 Aspirin Ec 81 Mg Tabec PO 03/12/25 08:59 QDAY GRACE Atorvastatin Calcium 80 mg 02/09/25 21:00 02/09/25 20:19 Atorvastatin Calcium 20 Mg Tablet PO 03/11/25 20:59 80 mg HS GRACE Administration Carvedilol 12.5 mg 02/10/25 08:00 Carvedilol 12.5 Mg Tablet PO 03/12/25 07:59 BIDWM GRACE Docusate Sodium 100 mg 02/10/25 09:00 Docusate Sod 100 Mg Capsule PO 03/12/25 08:59 QDAY [facility] Protocol Fluoxetine HCl 20 mg 02/10/25 09:00 Fluoxetine Hcl 10 Mg Capsule PO 03/12/25 08:59 QDAY [facility] Heparin Sodium (Porcine) 5,000 unit 02/09/25 22:00 02/10/25 06:09 Heparin Sod Inj 5000 Unit/Ml Vial SC 02/23/25 21:59 5,000 unit Q8HR GRACE Administration Hydralazine HCl 10 mg 02/09/25 14:39 Hydralazine Inj 20 Mg/Ml Vial IV 03/11/25 14:38 Q6H PRN SBP>200 Hydralazine HCl 50 mg 02/09/25 22:00 02/10/25 06:08 Hydralazine Hcl 25 Mg Tablet PO 03/11/25 21:59 50 mg TID GRACE Administration Losartan Potassium 50 mg 02/09/25 14:45 02/09/25 15:11 Losartan Potassium 25 Mg Tablet PO 03/11/25 14:44 50 mg QDAY [facility] Administration Metoprolol Succinate 200 mg 02/10/25 09:00 Metoprolol Succinate Xl 25 Mg Tabcr PO 03/12/25 08:59 QDAY [facility] Morphine Sulfate 1 mg 02/09/25 15:27 Morphine Sulf Inj 10 Mg/Ml Vial IVP 02/14/25 15:26 Q4HR PRN PAIN SCALE 4-10(Mod-Sev Nitroglycerin 0.4 mg 02/09/25 14:46 Nitroglycerin 0.4 Mg Subl Btl #25 SL Q5MIN PRN CHEST PAIN Ondansetron HCl 4 mg 02/09/25 14:11 Ondansetron Inj 2 Mg/Ml Inj 2 Ml IV 03/11/25 14:10 Q6H PRN NAUSEA OR VOMITING Protocol Pantoprazole Sodium 40 mg 02/10/25 09:00 Pantoprazole Inj 40 Mg [facility]ial [facility] Consult 1 each 02/09/25 21:40 Pharmacy To Consult Pneumovacc XX 03/11/25 21:39 PRN PRN CONSULT Sennosides 1 tab 02/10/25 09:00 Senna Tablet PO 03/12/25 08[facility] Protocol Spironolactone 25 mg 02/10/25 09:00 Spironolactone 25 Mg Tablet PO 03/12/25 08:59 [facility] Plan Assessment and Plan: Summary: Mr. Mensah is a 69-year-old female with past medical history of hypertension, dyslipidemia, depression, seasonal allergies and personal history of hemorrhage status post mathieu hole procedure 10 to 15 years ago at [place] who presented to [facility] emergency department on 02/09/2025 with a chief complaint of left-sided chest pain. Patient admitted to hospital for ACS, cardiology consulted for recommendations. #Refractory chest pain #Elevated Troponins - Mostly NSTEMI type II -Mostly secondary to uncontrolled blood pressure. #Acute coronary syndrome #Atypical chest pain #Diastolic dysfunction, stage II Patient presented with left-sided nonradiating chest pain not alleviated with nitroglycerin at home, describes it as a pressure-like sensation on left side of chest 10 on 10 and has improved to 6/10. Not related to exertion or rest. constant pain. sublingual nitroglcerin did not help. EKG in ED shows sinus rhythm, no acute ST?T changes, troponin elevation noted at 0.086->0.187 -> 0.055 -> 0.021. Mostly secondary to uncontrolled blood pressure. Patient did have blood pressure 226/85 on presentation, on assessment at bedside patient's systolic blood pressure still more than 200, was given hydralazine 10 mg IV x 1 in emergency department, patient continues to complain of chest pain. HAROON score- 85 points, low risk category, less than 1% in hospital mortality, low risk 6-month post discharge mortality, less than 3% probability of post discharge to 6 months ECHO 02/09/2025: Normal LV size and function with an EF of 60 to 65%. Stage II diastolic dysfunction. Mild LVH Normal RV size and function. Estimated RVSP normal at 30 mmHg. Mildly dilated LA, mild MR and mild MAC. Mild aortic sclerosis without stenosis. Mild TR Patient is unable to provide details of home medication for high blood pressure, per med reconciliation review patient on hydralazine 50 mg 3 times daily, hydrochlorothiazide 50 mg daily, irbesartan 300 mg daily, metoprolol succinate 200 mg daily, nitroglycerin 0.4 mg as needed, aspirin 81 mg daily, spironolactone 25 mg daily. Recommendations: -Considering patient has refractory chest pain, scheduled for cardiac catheterization in a.m. -Discussed risks and benefits of cardiac catheterization with family, patient verbalised understanding. -Optimize blood pressure control consider upgrading losartan 100 mg daily and Coreg 25 mg twice daily -Continue aspirin 81 mg p.o. daily -Currently patient on hydralazine 50 mg 3 times daily, hydrochlorothiazide 50 mg daily, spironolactone 25 mg p.o. daily, losartan 50 mg daily, Coreg 12.5 mg p.o. twice daily #Hypertensive emergency #Hypertension Patient had blood pressure 226/85 on presentation, per med reconciliation review patient on hydralazine 50 mg 3 times daily, hydrochlorothiazide 50 mg daily, irbesartan 300 mg daily, metoprolol succinate 200 mg daily, nitroglycerin 0.4 mg as needed, aspirin 81 mg daily, spironolactone 25 mg daily. Patient currently denies any other symptoms other than chest pain, denies any headache, does have personal history of hemorrhage status post mathieu hole procedure 10 to 15 years ago at [place]. Recommendations: -Optimize blood pressure control consider upgrading losartan 100 mg daily and Coreg 25 mg twice daily -Currently patient on hydralazine 50 mg 3 times daily, hydrochlorothiazide 50 mg daily, spironolactone 25 mg p.o. daily, losartan 50 mg daily, Coreg 12.5 mg p.o. twice daily -Consider CT scan of head if patient develops worsening headache #Normocytic normochromic anemia Patient's hemoglobin 11.0, hematocrit 33.2, RBC 3.95, MCV 84, MCH 27.8, MCHC 33.1 -Consider outpatient workup #Electrolyte imbalance #Hypomagnesemia -Replace electrolytes as needed -Keep potassium more than 4 and magnesium more than 2 at all times #Dyslipidemia Started on atorvastatin 80 mg at bedtime, continue Follow lipid panel in a.m. #Depression Home medication resumed by primary team Thank you for the consult and allowing to participate in the care of the patient. Cardiology will continue to follow. Case discussed with Attending Dr. Bradshaw. Daniel Matias PGY1 Disclaimer: This note was dictated by speech recognition. Minor errors in filbert grower may be present due to voice recognition software. Attending Provider Attestation/Addendum I have personally seen and examined the patient separately on the above date of service and discussed the plan of care with the resident. I reviewed the resident Dr. Daniel Matias consultation progress note and agree with the resident findings and plan in the note above and have also edited the documentation to reflect my findings and plan. Patient blood pressure was elevated again this morning and she did complain of again chest pain and chest pressure. Patient troponins were elevated during this admission but are now downtrending. Recommended to start the patient on losartan 100 mg once daily along with Coreg 12.5 mg twice daily and will add hydrochlorothiazide 12.5 mg once daily to the regimen if needed. Patient recommended electrocardioversion. With elevated troponins and continued chest pain. Patient explained that his medication alternatives of performing a left heart cardiac attrition including the risk of heart attack, stroke and along with bleeding in detail with the help of a finish mender. Patient agreeable for the procedure and we will keep her n.p.o. after midnight and plan to do it tomorrow morning. Bob Bradshaw M.D. Interventional Cardiology
[2025-02-10] MEDS: NITROGLYCERIN 0.4 MG SUBL BTL #25 SL ×2 (07:36→07:41)
--- NOTE | 2025-02-10 07:43 | CHAP ---
Rapid response call. Prayed outside room.
[2025-02-10] MEDS: carVEDILOL 12.5 MG TABLET PO ×2 (07:44→17:17)
--- NOTE | 2025-02-10 07:45 | EKG_ITS ---
[facility] Test Date: 2025-02-10 Pat Name: JAMSHID BRIGHT Department: Room: S264-A Gender: Female Php Wordpress Developer: AGUSTINA : 1955 Requested By: Joel Gonzalez Order Number: [id number] Reading MD: Joel Gonzalez Measurements Intervals [place] Rate: 79 P: 56 ME: 169 QRS: -6 QRSD: 88 T: 66 QT: 380 QTc: 438 Interpretive Statements SINUS RHYTHM LEFT VENTRICULAR HYPERTROPHY AND ST-T CHANGE Compared to ECG 02/09/2025 13:10:45 Left ventricular hypertrophy now present ST (T wave) deviation now present /store/S0/[id number]/ecg/[id number].pdf
[2025-02-10] MEDS: MORPHINE SULF INJ 10 MG/ML VIAL IVP (07:48)
[2025-02-10] MEDS: hydrALAZINE INJ 20 MG/ML VIAL 10 MG IV (07:53)
--- NOTE | 2025-02-10 08:00 | PC.SS ---
Rapid response initiated on the patient due to complaints of chest pain and left arm numbness. Medical team accessing. Family member at bedside.
[2025-02-10] MEDS: ASPIRIN EC 81 MG TABEC PO (08:06)
[2025-02-10] MEDS: FLUoxetine HCL 10 MG CAPSULE 20 MG PO (08:06)
[2025-02-10] MEDS: LOSARTAN POTASSIUM 25 MG TABLET 50 MG PO (08:06)
[2025-02-10] MEDS: DOCUSATE SOD 100 MG CAPSULE PO (08:06)
[2025-02-10] MEDS: SPIRONOLACTONE 25 MG TABLET PO (08:07)
[2025-02-10] MEDS: PANTOPRAZOLE INJ 40 MG VIAL IVP (08:07)
[2025-02-10] MEDS: hydroCHLOROthiazide 12.5 MG CAPSULE 50 MG PO (08:15)
--- NOTE | 2025-02-10 09:05 | CHAP ---
Patient was with . Neither spoke Thai and did not want prayer except in Japanese. I will pass it to someone who speaks Japanese.
[2025-02-10 09:08] LABS: Troponin I 0.021 ng/mL (0.0-0.045)
[2025-02-10 09:22] LABS: Prothrombin Time 10.6 Seconds (9.0-12.2)
[2025-02-10 09:28] LABS: Cardiac Risk Estimate 2.8 RATIO (3.7-5.6); Cholesterol 185 mg/dL (132-200); HDL Cholesterol 66 mg/dL (40-60); LDL Cholesterol,Calculated 103 mg/dL (0-130); Triglycerides 78 mg/dL (30-150)
--- NOTE | 2025-02-10 10:02 | XR_ITS ---
Examination: Retroperitoneal ultrasound, complete Technique: Multiple high resolution grayscale images of the retroperitoneum obtained, including kidneys and bladder. Exam date and time:February 10, 2025 1226 hours INDICATIONS: Diagnosis uncontrolled hypertension this week FINDINGS: Right kidney 10.5 cm renal cortex 1.6 cm Left kidney 9.8 cm renal cortex 1.5 cm Perinephric stranding Moderate bilateral renal parenchymal scar formation No bladder mass, bladder prevoid volume 101 cc IMPRESSION: Bilateral renal cortical thinning Moderate bilateral renal parenchymal scar formation Consider renal arterial Doppler to assess for renal artery stenosis, as clinically warranted
[2025-02-10] MEDS: Magnesium Sulfate 2 GM Ivpb 2 GM/50 ML BAG IV (10:47)
[2025-02-10] MEDS: POTASSIUM CHLORIDE 20 mEq TABCR 40 MEQ PO (10:47)
--- NOTE | 2025-02-10 13:25 | EVENTNT_ITS ---
<Statement entered by Coco Zeng MD - 02/10/25 14:48> I discussed with and supervised the international relations professor physician who took care of this patient. I personally saw and examined the patient and discussed the assessment and plan with the entire medicine team, including my attending Dr. Rodriguez, I agree with the assessment and plan as documented below This morning rapid response was called due to patient was having chest pain 9/10 that she describes as a pressure-like and that comes goes, tachycardic and hypertensive to systolic into around 200s. Patient received x 2 nitro with mild improvement of the pain, IV hydralazine 10 mg x 1, spironolactone 25 mg x 1, carvedilol 12.5 mg x 1 and losartan 50 mg p.o. x 1 as well as IV morphine 1 mg. Patient blood pressure downtrending 154/70 and patient stated that her chest pain improved to 3/10. EKG did not show any acute ST changes or T wave inversions, troponins are pending no per cardiology recommendations patient needs to be n.p.o. and if blood pressure is controlled he will have coronary angiogram tomorrow. Coco Zeng MD PGY-3 Disclaimer: Despite multiple revisions, due to the dictation software being used, the document bellow may not be free of grammatical errors including phonetic/typographic errors. However, this does not deter from our commitment to providing health care in the patient's best interest in mind. Documentation for date of: 02/10/25 Event Note Event Note: This a.m. patient had rapid response due to chest pain. Vitals systolic in the 200s and heart rate in the 100s. 2 nitroglycerin and 1 morphine given in patient's pain improved. EKG was ordered no ST changes noted, troponins were orderd and found negative. In regards to blood pressure hydralazine 10 mg IV x 1 given, spironolactone 25, losartan 50, Coreg 12.5, hydrochlorothiazide 50 mg given. BP decreased to 148/83, and heart rate 68. Case discussed with my senior Dr. Magana PGY-2, Dr. Zeng PGY-[address] Rodriguez. Regan Gambino MD PGY-1
--- NOTE | 2025-02-10 13:36 | ESPR_ITS ---
<Statement entered by Chantelle Magana MD - 02/10/25 15:23> I discussed with and supervised the internet marketer physician who took care of this patient. I personally saw and examined the patient and discussed the assessment and plan with the entire medicine team, including my attending Dr. Rodriguez, I agree with the assessment and plan as documented below Patient is a 69-year-old female with past medical history of hypertension, CKD seen by Dr. Cortez, history of CVA (15 years ago) who presented to the ED due to chest pain and admitted for hypertensive emergency and unstable angina. Patient had a rapid response early this morning, and in addition to her home medications, added another Co-reg 12.5mg, IV Hydralazine, 1mg of IV Morphine, and 2 pills of Nitroglycerin. Patient's pain has since been controlled, and currently a 3-4/10, and BP is controlled to 150s/80s. Patient will also be on Aspirin and Atorvastatin, and will monitor patient's Mag and K+. Patient will be made NPO after midnight for angiogram tomorrow. Lipid panel, TSH and A1c WNL. EKG showed no ST-T wave changes, and repeat troponin negative. Chantelel Magana MD PGY-2 <Statement entered by Coco Zeng MD - 02/10/25 14:49> I discussed with and supervised the internet marketer physician who took care of this patient. I personally saw and examined the patient and discussed the assessment and plan with the entire medicine team, including my attending Dr. Rodriguez, I agree with the assessment and plan as documented below Patient seen and examined at bedside today. Labs and imaging reviewed. This morning rapid response was called due to patient was having chest pain 9/10 that she describes as a pressure-like and that comes goes, tachycardic and hypertensive to systolic into around 200s. Patient received x 2 nitro with mild improvement of the pain, IV hydralazine 10 mg x 1, spironolactone 25 mg x 1, carvedilol 12.5 mg x 1 and losartan 50 mg p.o. x 1 as well as IV morphine 1 mg. Patient blood pressure downtrending 154/70 and patient stated that her chest pain improved to 3/10. EKG did not show any acute ST changes or T wave inversions, troponins are pending no per cardiology recommendations patient needs to be n.p.o. and if blood pressure is controlled he will have coronary angiogram tomorrow. Coco Zeng MD PGY-3 Disclaimer: Despite multiple revisions, due to the dictation software being used, the document bellow may not be free of grammatical errors including phonetic/typographic errors. However, this does not deter from our commitment to providing health care in the patient's best interest in mind. Documentation for date of: 02/10/25 Subjective Subjective Interval history: This a.m. patient had rapid response due to chest pain. Vitals systolic in the 200s and heart rate in the 100s. 2 nitroglycerin and 1 morphine given in patient's pain improved. In regards to blood pressure hydralazine 10 mg IV x 1 given, spironolactone 25, losartan 50, Coreg 12.5, hydrochlorothiazide 50 mg given. BP decreased to 148/83, and heart rate 68. Reevaluated later in the morning chest pain had resolved and blood pressure has maintained in the 140s with heart rate of 60. Spoke to cardiology we will most likely have cardiac cath tomorrow. N.p.o. after midnight placed. Exam Vital Signs Temp Pulse Resp BP Pulse Ox O2 Del Method 97.6 F 72 15 153/72 H 95 Room Air 02/10/25 08:00 02/10/25 08:15 02/10/25 08:00 02/10/25 08:35 02/10/25 08:00 02/10/25 08:00 Narrative Exam Physical Exam GENERAL: NAD, AAOx3 HEENT: Moist mucosa. Eyes open, symmetrical, & clear CARDIO: Heart RRR, no obvious murmurs PULM: No noted coughing/dyspnea CTA B/L, no R/W/R GI: Abdomen soft, nondistended, no pain on palpation. BSx4 SKIN/MSK/EXT: No wounds/rashes/edema/amputations, no pain on palpation. Pedal pulses present B/L NEURO: AAOx3, no focal neuro deficits, able to move all 4 extremities Objective Labs 02/10/25 05:09 02/10/25 05:09 Labs: Laboratory Results - last 24 hr 02/09/25 02/09/25 02/09/25 12:03 13:25 21:05 WBC RBC Hgb Hct MCV MCH MCHC RDW Std Deviation Plt Count Neut % (Auto) Lymph % (Auto) [place] % (Auto) Eos % (Auto) Baso % (Auto) Neut # (Auto) Lymph # (Auto) [place] # (Auto) Eos # (Auto) Baso # (Auto) Immature Gran # (Auto) Absolute Nucleated RBC Immature Gran % Nucleated RBC % PT INR APTT 25.4 Sodium Potassium Chloride Carbon Dioxide Anion Gap BUN Creatinine Estim Creat Clear Calc eGFR BUN/Creatinine Ratio Glucose Estimated Ave Glu mg/dL 108 Hemoglobin A1c 5.4 Calculated Osmolality Calcium Corrected Calcium Phosphorus Magnesium Total Bilirubin AST ALT Alkaline Phosphatase Troponin I 0.187 H* 0.055 H* Total Protein Albumin Globulin Albumin/Globulin Ratio Triglycerides Cholesterol LDL Cholesterol, Calc HDL Cholesterol Cholesterol/HDL Ratio TSH 02/10/25 02/10/25 05:09 07:55 WBC 5.8 RBC 3.84 L Hgb 10.7 L Hct 32.5 L MCV 85 MCH 27.9 MCHC 32.9 RDW Std Deviation 43.3 Plt Count 281 Neut % (Auto) 54 Lymph % (Auto) 35 [place] % (Auto) 6 Eos % (Auto) 4 Baso % (Auto) 1 Neut # (Auto) 3.1 Lymph # (Auto) 2.0 [place] # (Auto) 0.4 Eos # (Auto) 0.2 Baso # (Auto) 0.0 Immature Gran # (Auto) 0.01 H Absolute Nucleated RBC 0.00 Immature Gran % 0 Nucleated RBC % 0 PT 10.6 INR 1.0 APTT Sodium 143 Potassium 3.7 Chloride 107 Carbon Dioxide 27.7 Anion Gap 8 BUN 13 Creatinine 0.6 Estim Creat Clear Calc 82.6 eGFR > 60 BUN/Creatinine Ratio [address] Glu mg/dL Hemoglobin A1c Calculated Osmolality 284 Calcium 9.3 Corrected Calcium 9.4 Phosphorus 3.7 Magnesium 2.0 Total Bilirubin 1.2 AST 31 ALT 25 Alkaline Phosphatase 54 Troponin I 0.021 Total Protein 6.5 Albumin 3.9 Globulin 2.6 Albumin/Globulin Ratio 1.5 Triglycerides 78 Cholesterol 185 LDL Cholesterol, Calc 103 HDL Cholesterol 66 H Cholesterol/HDL Ratio 2.8 L TSH 2.68 Quality Measures Quality Measures VTE prophylaxis and none Advance care planning discussed with:: patient Assessment & Plan Assessment Current Active Medications: Generic Name Dose Route Start Last Admin Trade Name Freq PRN Reason Stop Dose Admin Acetaminophen 650 mg 02/09/25 14:11 Acetaminophen 325 Mg Tablet PO 03/11/25 14:10 Q6H PRN Fever >101.5 Acetaminophen 650 mg 02/09/25 14:11 Acetaminophen 325 Mg Tablet PO 03/11/25 14:10 Q6H PRN PAIN SCALE 1-3 (mild Aspirin 81 mg 02/10/25 09:00 02/10/25 08:06 Aspirin Ec 81 Mg Tabec PO 03/12/25 08:59 81 mg QDAY GRACE Administration Atorvastatin Calcium 80 mg 02/09/25 21:00 02/09/25 20:19 Atorvastatin Calcium 20 Mg Tablet PO 03/11/25 20:59 80 mg HS GRACE Administration Carvedilol 12.5 mg 02/10/25 17:30 Carvedilol 12.5 Mg Tablet PO 03/12/25 17:29 BIDWM GRACE Docusate Sodium 100 mg 02/10/25 09:00 02/10/25 08:06 Docusate Sod 100 Mg Capsule PO 03/12/25 08:59 100 mg QDAY GRACE Administration Protocol Fluoxetine HCl 20 mg 02/10/25 09:00 02/10/25 08:06 Fluoxetine Hcl 10 Mg Capsule PO 03/12/25 08:59 20 mg QDAY GRACE Administration Heparin Sodium (Porcine) 5,000 unit 02/09/25 22:00 02/10/25 06:09 Heparin Sod Inj 5000 Unit/Ml Vial SC 02/23/25 21:59 5,000 unit Q8HR GRACE Administration Hydralazine HCl 10 mg 02/09/25 14:39 Hydralazine Inj 20 Mg/Ml Vial IV 03/11/25 14:38 Q6H PRN SBP>200 Hydralazine HCl 50 mg 02/09/25 22:00 02/10/25 06:08 Hydralazine Hcl 25 Mg Tablet PO 03/11/25 21:59 50 mg TID GRACE Administration Hydrochlorothiazide 50 mg 02/10/25 09:00 02/10/25 08:15 Hydrochlorothiazide 12.5 Mg Capsule PO 03/12/25 08:59 50 mg QDAY GRACE Administration Losartan Potassium 50 mg 02/09/25 14:45 02/10/25 08:06 Losartan Potassium 25 Mg Tablet PO 03/11/25 14:44 50 mg QDAY GRACE Administration Morphine Sulfate 1 mg 02/09/25 15:27 02/10/25 07:48 Morphine Sulf Inj 10 Mg/Ml Vial IVP 02/14/25 15:26 1 mg Q4HR PRN Administration PAIN SCALE 4-10(Mod-Sev Nitroglycerin 0.4 mg 02/09/25 14:46 02/10/25 07:41 Nitroglycerin 0.4 Mg Subl Btl #25 SL 1 tab Q5MIN PRN Administration CHEST PAIN Ondansetron HCl 4 mg 02/09/25 14:11 Ondansetron Inj 2 Mg/Ml Inj 2 Ml IV 03/11/25 14:10 Q6H PRN NAUSEA OR VOMITING Protocol Pantoprazole Sodium 40 mg 02/10/25 09:00 02/10/25 08:07 Pantoprazole Inj 40 Mg Vial IVP 03/12/25 08:59 40 mg QDAY GRACE Administration Pharmacy Consult 1 each 02/09/25 21:40 Pharmacy To Consult Pneumovacc XX 03/11/25 21:39 PRN PRN CONSULT Sennosides 1 tab 02/10/25 09:00 02/10/25 08:07 Senna Tablet PO 03/12/25 08:59 Not Given QDAY [facility] Protocol Spironolactone 25 mg 02/10/25 09:00 02/10/25 08:07 Spironolactone 25 Mg Tablet PO 03/12/25 08:59 25 mg QDAY GRACE Administration Plan 69-year-old female with past medical history of hypertension, CKD seen by Dr. Villatoro, history of CVA (15 years ago) who presented to the ED due to chest pain. Patient woke up this morning feeling strange saying she was having tremors or shakiness in her upper extremities, patient ignored sensation and started to make breakfast and started developing nausea which progressed to chest pain. Chest pain is described as stabbing and pressure-like 10 out of 10 with associated left upper extremity numbness. Patient has had episodes of chest pain previously sees a clinical appeals auditor in [place] who prescribed her nitroglycerin which patient took 2 nitroglycerin and felt some relief at the time. On arrival to the hospital patient developed shortness of breath and chest pain. Denies fever, chills, vomiting, abdominal pain, orthopnea, PND. Cardiology was consulted and patient will be admitted for ACS rule out. #Hypertensive emergency On admission blood pressure 226/85 Patient received hydralazine 10 mg IV x 1 Patient states she is compliant with all her blood pressure medications ? Losartan 100 mg daily ? Coreg 12.5 mg twice daily ? Hydralazine 50 mg 3 times daily ? Hydralazine 10mg IV as needed ? Spironolactone 25 mg daily #Unstable angina #Elevated troponins At home patient had 2 nitroglycerin which relieved the chest pain In ED patient received aspirin 324 Initial troponins mildly elevated 0.086 Patient has had episodes of chest pain previously sees a clinical appeals auditor in [place] who prescribed her nitroglycerin which patient took 2 nitroglycerin and felt some relief at the time. EKG shows sinus rhythm, no ST segment changes Echo: Normal LV size and function with an EF of 60 to 65%. Stage II diastolic dysfunction. Mild LVH Normal RV size and function. Estimated RVSP normal at 30 mmHg. Mildly dilated LA, mild MR and mild MAC. Mild aortic sclerosis without stenosis. Mild TR lipid panel nl, TSH nl, A1c 5.4 ? Aspirin 81 mg ? Atorvastatin ? Cardiology consulted, appreciate recommendations ? K > 4, Mg >2 #History of depression ? Started on fluoxetine 20 mg daily Case discussed with my senior Dr. Magana PGY-2, Dr. Zeng PGY-[address] Michael Gambino MD PGY-1 Disposition: Telemetry Fluids: None Feeding: Cardiac diet, NPO after midnight Thrombo prophylaxis: Heparin Gastric Ulcer prophylaxis: Pantoprazole CODE STATUS: DNR Attending Provider Attestation/Addendum I have examined the patient, reviewed labs and imaging findings, discussed the case with the resident(s), and reviewed entered orders. I agree with the plan of care as outlined in this note, with these additional summaries/recommendations: Patient seen at bedside. No acute overnight events although patient had rapid response this morning for chest pain and elevated blood pressure. Systolic blood pressure was noted to be in the 220s and patient endorsing 8 out of 10 chest pain. Patient received 2 doses of nitro and additional antihypertensives with improvement in chest pain and blood pressure. Stat troponin was obtained which is within normal range. EKG showed sinus rhythm, rate 79, LVH, and nonspecific ST changes. Chest pain related to hypertensive emergency versus less likely NSTEMI. Patient receiving aspirin and atorvastatin which we will continue. Cardiology following with plans for possible cardiac cath inpatient versus outpatient. Continue to optimize oral antihypertensive regimen as needed. LDL 103. A1c 5.4%. TSH 2.68. Continue to monitor on telemetry and appreciate cardiology recommendations. Patient and family updated on the plan and in agreement. Repeat hematology and chemistry panel in AM. Dr. Michael MD
--- NOTE | 2025-02-10 16:02 | PC.SS ---
Rounding Note: Plan is for the patient to undergo cath placement tomorrow.
[2025-02-10] MEDS: ATORVASTATIN CALCIUM 20 MG TABLET 80 MG PO (21:28)
[2025-02-10] MEDS: POLYETHYLENE GLYCOL 17 GM PACKET PO (22:44)
[2025-02-11] VITALS (7 sets, daily range): BP systolic 136–152; BP diastolic 59–63; PULSE 61–67; RESP 12–18; TEMP 36.1–36.3; O2SAT 94–95
[2025-02-11] MEDS: HEPARIN SOD INJ 5000 UNIT/ML VIAL SC (05:40)
[2025-02-11] MEDS: hydrALAZINE HCL 25 MG TABLET 50 MG PO (05:40)
[2025-02-11 05:57] LABS: Basophils % (Auto) 1 % (0-2.5); Eosinophils # (Auto) 0.3 Thou/mm3 (0.0-0.5); Eosinophils % (Auto) 6 % (0-10); Hematocrit 32.6 % (36.0-46.0); Hemoglobin 10.7 g/dL (12.0-16.0); Immature Granulocytes % (Auto) 0 % (0-0); Immature Granulocytes Auto 0.01 Thou/mm3 (0.00-0.00); Lymphocytes # (Auto) 2.2 Thou/mm3 (1.0-4.8); Lymphocytes % (Auto) 38 % (10-50); Mean Corpuscular HGB Conc 32.8 g/dl (31.0-37.0); Mean Corpuscular Hemoglobin 28.1 pg (25.0-35.0); Mean Corpuscular Volume 86 fL (80-100); Monocytes # (Auto) 0.3 Thou/mm3 (0.0-0.8); Monocytes % (Auto) 5 % (0-12); Neutrophils # (Auto) 2.9 Thou/mm3 (1.8-7.7); Neutrophils % (Auto) 50 % (37-80); Nucleated Red Blood Cell % 0 /100 WBC (0); Platelet Count 304 Thou/mm3 (140-440); RDW Standard Deviation 43.5 fL (36.4-46.3); Red Blood Count 3.81 Miln/mm3 (4.00-5.20); White Blood Count 5.7 Thou/mm3 (3.6-11.0)
[2025-02-11 06:03] LABS: Partial Thromboplastin Time 26.1 Seconds (22.0-36.0); Prothrombin Time 10.8 Seconds (9.0-12.2)
[2025-02-11 06:17] LABS: Alanine Aminotransferase 20 U/L (10-49); Albumin, Serum 4.1 gm/dL (3.4-4.8); Albumin/Globulin Ratio 1.9 (1.2-2.2); Alkaline Phosphatase 52 U/L (46-116); Anion Gap 10 (7-16); Aspartate Amino Transferase 28 U/L (0-34); BUN/Creatinine Ratio 23 Ratio (12-20); Bilirubin,Total 1.5 mg/dL (0.3-1.2); Blood Urea Nitrogen 16 mg/dL (9-23); Calcium 9.4 mg/dL (8.3-10.6); Calcium (Corrected) 9.4 mg/dL (8.5-10.1); Carbon Dioxide 27.2 mMol/L (20.0-31.0); Chloride 103 mMol/L (98-107); Creatinine (Component) 0.7 mg/dL (0.6-1.3); Estimated Creatinine Clearance 70.7 mL/min (>60); Globulin 2.2 gm/dL (2.3-3.5); Glucose 97 mg/dL (74-106); Magnesium 1.8 mg/dL (1.6-2.6); Osmolality,Calculated 280 (275-295); Phosphorous 3.9 mg/dL (2.4-5.1); Potassium 4.4 mMol/L (3.4-5.1); Sodium 140 mMol/L (136-145); Total Protein 6.3 gm/dL (5.7-8.2); eGFR > 60 See Note
--- NOTE | 2025-02-11 07:42 | PC.NURSE ---
Dr. Gold made aware patient is refusing angiogram procedure this morning. RAYO Cheng from [facility] arrived to transport patient to procedure and patient states she does not want procedure. RAYO Cheng to make Dr. Bradshaw aware.
--- NOTE | 2025-02-11 08:10 | PC.NURSE ---
Dr. Matias at bedside speaking with patient regarding risks and benefits of angiogram. Interpretor services used: [facility]IN S963. Patient refuses angiogram procedure and notes she is ready to leave.
--- NOTE | 2025-02-11 08:57 | PC.NURSE ---
Dr. Franklin at bedside speaking with patient. Patient requests to leave against medical advice. AMA paper signed per patient, myself and Dr. Franklin. Patient notes she will take her morning oral medications prior to leaving.
[2025-02-11] MEDS: hydroCHLOROthiazide 12.5 MG CAPSULE 50 MG PO (09:04)
[2025-02-11] MEDS: LOSARTAN POTASSIUM 25 MG TABLET 100 MG PO (09:06)
[2025-02-11] MEDS: FLUoxetine HCL 10 MG CAPSULE 20 MG PO (09:06)
[2025-02-11] MEDS: SPIRONOLACTONE 25 MG TABLET PO (09:07)
[2025-02-11] MEDS: carVEDILOL 12.5 MG TABLET PO (09:07)
[2025-02-11] MEDS: ASPIRIN EC 81 MG TABEC PO (09:07)
[2025-02-11] MEDS: SENNA TABLET 1 TAB PO (09:07)
[2025-02-11] MEDS: DOCUSATE SOD 100 MG CAPSULE PO (09:08)
[2025-02-11] MEDS: PANTOPRAZOLE INJ 40 MG VIAL IVP (09:08)
--- NOTE | 2025-02-11 09:21 | PD.RESPRO ---
Documentation for date of: 02/11/25 Subjective Subjective Interval history: Patient seen and examined at bedside. Labs and vitals reviewed. Patient was scheduled for cardiac catheterization procedure this morning however per nurse patient refused procedure. Patient seen at bedside with primrary nurse, explained in detail about coronary artery disease, benefits of cardiac catheterization to rule out possible CAD and underlying treatment with PCI. Also explained to the patient's the risks of the procedure including bleeding, allergic reaction to contrast, SINA secondary to contrast and rare complications such as stroke, VT. Patient stated that she does not want a procedure at this time and wants to go home today, explained to the patient that she does have the option of following outpatient with cardiology and she can return to the emergency department anytime if she has symptomatic chest pain. Patient verbalized understanding, informed primary team about patient's wishes to be discharged. Antihypertensives recommended on discharge losartan?HCTZ 100-25 mg daily, Coreg 12.5 mg twice daily, hydralazine 50 mg 3 times daily, discontinue spironolactone for now. Patient to follow outpatient in 1 week cardiology office. Exam Vital Signs Temp Pulse Resp BP Pulse Ox O2 Del Method 97.4 F 67 18 152/63 H 95 Room Air 02/11/25 08:00 02/11/25 09:07 02/11/25 08:00 02/11/25 09:07 02/11/25 08:00 02/11/25 08:00 Narrative Exam Physical Exam General: Awake and in no acute distress. Conversational and non-toxic appearing. HEENT: Normocephalic, atraumatic, mucous membranes moist. Heart: Regular rate and rhythm, I/ murmur in aortic area. Lungs: Clear to auscultation with no wheezing or crackles. Abdomen: Soft, nondistended, nontender, positive bowel sounds. ?No guarding or rebound tenderness. Neurologic: Alert and oriented x3, no gross neurological deficit, and patient able to move all 4 extremities. Extremities: No edema. Skin: No rash or ecchymoses. Objective Labs 02/11/25 05:04 02/11/25 05:04 Labs: Laboratory Results - last 24 hr 02/10/25 02/11/25 05:09 05:04 WBC 5.7 RBC 3.81 L Hgb 10.7 L Hct 32.6 L MCV 86 MCH 28.1 MCHC 32.8 RDW Std Deviation 43.5 Plt Count 304 Neut % (Auto) 50 Lymph % (Auto) 38 [place] % (Auto) 5 Eos % (Auto) 6 Baso % (Auto) 1 Neut # (Auto) 2.9 Lymph # (Auto) 2.2 [place] # (Auto) 0.3 Eos # (Auto) 0.3 Baso # (Auto) 0.0 Immature Gran # (Auto) 0.01 H Absolute Nucleated RBC 0.00 Immature Gran % 0 Nucleated RBC % 0 PT 10.6 10.8 INR 1.0 1.0 APTT 26.1 Sodium 140 Potassium 4.4 D Chloride 103 Carbon Dioxide 27.2 Anion Gap 10 BUN 16 Creatinine 0.7 Estim Creat Clear Calc 70.7 eGFR > 60 BUN/Creatinine Ratio 23 H Glucose 97 Calculated Osmolality 280 Calcium 9.4 Corrected Calcium 9.4 Phosphorus 3.9 Magnesium 1.8 Total Bilirubin 1.5 H AST 28 ALT 20 Alkaline Phosphatase 52 Total Protein 6.3 Albumin 4.1 Globulin 2.2 L Albumin/Globulin Ratio 1.9 Triglycerides 78 Cholesterol 185 LDL Cholesterol, Calc 103 HDL Cholesterol 66 H Cholesterol/HDL Ratio 2.8 L Quality Measures Quality Measures VTE prophylaxis and none Advance care planning discussed with:: patient Assessment & Plan Assessment Current Active Medications: Generic Name Dose Route Start Last Admin Trade Name Freq PRN Reason Stop Dose Admin Acetaminophen 650 mg 02/09/25 14:11 Acetaminophen 325 Mg Tablet PO 03/11/25 14:10 Q6H PRN Fever >101.5 Acetaminophen 650 mg 02/09/25 14:11 Acetaminophen 325 Mg Tablet PO 03/11/25 14:10 Q6H PRN PAIN SCALE 1-3 (mild Aspirin 81 mg 02/10/25 09:00 02/11/25 09:07 Aspirin Ec 81 Mg Tabec PO 03/12/25 08:59 81 mg QDAY GRACE Administration Atorvastatin Calcium 80 mg 02/09/25 21:00 02/10/25 21:28 Atorvastatin Calcium 20 Mg Tablet PO 03/11/25 20:59 80 mg HS GRACE Administration Carvedilol 12.5 mg 02/10/25 17:30 02/11/25 09:07 Carvedilol 12.5 Mg Tablet PO 03/12/25 17:29 12.5 mg BIDWM GRACE Administration Docusate Sodium 100 mg 02/10/25 09:00 02/11/25 09:08 Docusate Sod 100 Mg Capsule PO 03/12/25 08:59 100 mg QDAY GRACE Administration Protocol Fluoxetine HCl 20 mg 02/10/25 09:00 02/11/25 09:06 Fluoxetine Hcl 10 Mg Capsule PO 03/12/25 08:59 20 mg QDAY GRACE Administration Heparin Sodium (Porcine) 5,000 unit 02/09/25 22:00 02/11/25 05:40 Heparin Sod Inj 5000 Unit/Ml Vial SC 02/23/25 21:59 5,000 unit Q8HR GRACE Administration Hydralazine HCl 10 mg 02/09/25 14:39 Hydralazine Inj 20 Mg/Ml Vial IV 03/11/25 14:38 Q6H PRN SBP>200 Hydralazine HCl 50 mg 02/09/25 22:00 02/11/25 05:40 Hydralazine Hcl 25 Mg Tablet PO 03/11/25 21:59 50 mg TID GRACE Administration Hydrochlorothiazide 50 mg 02/10/25 09:00 02/11/25 09:04 Hydrochlorothiazide 12.5 Mg Capsule PO 03/12/25 08:59 50 mg QDAY GRACE Administration Magnesium Sulfate 4 gm in 50 mls @ 12.5 mls/hr 02/11/25 08:14 02/11/25 09:08 Magnesium Sulfate Ivpb IV 02/11/25 12:13 Not Given X1 ONE Losartan Potassium 100 mg 02/11/25 09:00 02/11/25 09:06 Losartan Potassium 25 Mg Tablet PO 03/13/25 08:59 100 mg QDAY GRACE Administration Morphine Sulfate 1 mg 02/09/25 15:27 02/10/25 07:48 Morphine Sulf Inj 10 Mg/Ml Vial IVP 02/14/25 15:26 1 mg Q4HR PRN Administration PAIN SCALE 4-10(Mod-Sev Nitroglycerin 0.4 mg 02/09/25 14:46 02/10/25 07:41 Nitroglycerin 0.4 Mg Subl Btl #25 SL 1 tab Q5MIN PRN Administration CHEST PAIN Ondansetron HCl 4 mg 02/09/25 14:11 Ondansetron Inj 2 Mg/Ml Inj 2 Ml IV 03/11/25 14:10 Q6H PRN NAUSEA OR VOMITING Protocol Pantoprazole Sodium 40 mg 02/10/25 09:00 02/11/25 09:08 Pantoprazole Inj 40 Mg Vial IVP 03/12/25 08:59 40 mg QDAY GRACE Administration Pharmacy Consult 1 each 02/09/25 21:40 Pharmacy To Consult Pneumovacc XX 03/11/25 21:39 PRN PRN CONSULT Sennosides 1 tab 02/10/25 09:00 02/11/25 09:07 Senna Tablet PO 03/12/25 08:59 1 tab QDAY GRACE Administration Protocol Spironolactone 25 mg 02/10/25 09:00 02/11/25 09:07 Spironolactone 25 Mg Tablet PO 03/12/25 08:59 25 mg QDAY GRACE Administration Plan Assessment and Plan: Summary: Mr. Mensah is a 69-year-old female with past medical history of hypertension, dyslipidemia, depression, seasonal allergies and personal history of hemorrhage status post mathieu hole procedure 10 to 15 years ago at [facility] who presented to [facility] emergency department on 02/09/2025 with a chief complaint of left-sided chest pain. Patient admitted to hospital for ACS, cardiology consulted for recommendations. #Refractory chest pain #Elevated Troponins - Mostly NSTEMI type II -Mostly secondary to uncontrolled blood pressure. #Acute coronary syndrome #Atypical chest pain #Diastolic dysfunction, stage II Patient presented with left-sided nonradiating chest pain not alleviated with nitroglycerin at home, describes it as a pressure-like sensation on left side of chest 10 on 10 and has improved to 6/10. Not related to exertion or rest. constant pain. sublingual nitroglcerin did not help. EKG in ED shows sinus rhythm, no acute ST?T changes, troponin elevation noted at 0.086->0.187 -> 0.055 -> 0.021. Mostly secondary to uncontrolled blood pressure. Patient did have blood pressure 226/85 on presentation, on assessment at bedside patient's systolic blood pressure still more than 200, was given hydralazine 10 mg IV x 1 in emergency department, patient continues to complain of chest pain. HAROON score- 85 points, low risk category, less than 1% in hospital mortality, low risk 6-month post discharge mortality, less than 3% probability of post discharge to 6 months ECHO 02/09/2025: Normal LV size and function with an EF of 60 to 65%. Stage II diastolic dysfunction. Mild LVH Normal RV size and function. Estimated RVSP normal at 30 mmHg. Mildly dilated LA, mild MR and mild MAC. Mild aortic sclerosis without stenosis. Mild TR Patient is unable to provide details of home medication for high blood pressure, per med reconciliation review patient on hydralazine 50 mg 3 times daily, hydrochlorothiazide 50 mg daily, irbesartan 300 mg daily, metoprolol succinate 200 mg daily, nitroglycerin 0.4 mg as needed, aspirin 81 mg daily, spironolactone 25 mg daily. Recommendations: -Patient refused cardiac catheterization. -Optimize blood pressure control, antihypertensives recommended on discharge losartan?HCTZ 100-25 mg daily, Coreg 12.5 mg twice daily, hydralazine 50 mg 3 times daily -Continue aspirin 81 mg p.o. daily -Patient can follow-up outpatient with cardiology in 1 week. #Hypertensive emergency #Hypertension Patient had blood pressure 226/85 on presentation, per med reconciliation review patient on hydralazine 50 mg 3 times daily, hydrochlorothiazide 50 mg daily, irbesartan 300 mg daily, metoprolol succinate 200 mg daily, nitroglycerin 0.4 mg as needed, aspirin 81 mg daily, spironolactone 25 mg daily. Patient currently denies any other symptoms other than chest pain, denies any headache, does have personal history of hemorrhage status post mathieu hole procedure 10 to 15 years ago at [facility]. Recommendations: -Antihypertensives recommended on discharge losartan?HCTZ 100-25 mg daily, Coreg 12.5 mg twice daily, hydralazine 50 mg 3 times daily #Normocytic normochromic anemia Patient's hemoglobin 11.0, hematocrit 33.2, RBC 3.95, MCV 84, MCH 27.8, MCHC 33.1 -Consider outpatient workup #Electrolyte imbalance #Hypomagnesemia -Replace electrolytes as needed -Keep potassium more than 4 and magnesium more than 2 at all times #Dyslipidemia Started on atorvastatin 80 mg at bedtime, continue Follow lipid panel in a.m. #Depression Home medication resumed by primary team Thank you for the consult and allowing to participate in the care of the patient. Cardiology will continue to follow. Case discussed with Attending Dr. Bradshaw. Daniel Matias PGY1 Disclaimer: This note was dictated by speech recognition. Minor errors in distillery laborer may be present due to voice recognition software. Attending Provider Attestation/Addendum I have personally seen and examined the patient separately on the above date of service and discussed the plan of care with the resident. I reviewed the resident Dr. Daniel Matias consultation progress note and agree with the resident findings and plan in the note above and have also edited the documentation to reflect my findings and plan. Patient left AMA as she had to go home to take care of her things at home and cardiac cath could not be done. 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 Bob Bradshaw M.D. Interventional Cardiology
--- NOTE | 2025-02-11 13:56 | PD.RESEVENT ---
Documentation for date of: 02/11/25 Event Note Event Note: The patient has decided to sign out against medical advice (AMA) after being explained the risks & benefits of leaving before medical clearance/discharge. The patient had the opportunity to ask questions about their condition which were answered to their satisfaction; the patient is aware that they may return for further care at any time as needed. Prior to leaving AMA patient was instructed to: Follow up with primary care physician within 1 week Follow up with Cardiology within 1 week You have been prescribed carvedilol 12.5 mg twice daily You have been prescribed losartan/hydrochlorothiazide 100-25 daily You have been prescribed hydralazine 50 mg 3 times daily Please take all these medications as prescribed Should any symptoms recur or worsen patient instructed to return to the ED. Case discussed with my senior Dr. Magana PGY-[address] Abdulkadir Gambino MD PGY-1
== END 2025-02-11 09:30 | disposition left against medical advice (07) | DRG 199 ==
LOC: SERX 13:09 → SERHOLD 14:34 → S2NX 21:19
PROVIDERS: Physician Assistant; Student in an Organized Health Care Education/Training Program; Admitting Provider Student in an Organized Health Care Education/Training Program; Emergency Provider Emergency Medicine; PCP Nurse Practitioner Family; Visit Provider Internal Medicine
DX: I16.1 Hypertensive emergency (principal); I12.9 Hypertensive chronic kidney disease with stage 1 through stage 4 chronic kidney disease, or unspecified chronic kidney disease; N18.9 Chronic kidney disease, unspecified; I21.A1 Myocardial infarction type 2; F32.A Depression, unspecified; E78.5 Hyperlipidemia, unspecified; E83.42 Hypomagnesemia; D63.1 Anemia in chronic kidney disease; I25.10 Atherosclerotic heart disease of native coronary artery without angina pectoris; I70.0 Atherosclerosis of aorta; Z53.29 Procedure and treatment not carried out because of patient's decision for other reasons; Z79.82 Long term (current) use of aspirin; Z79.899 Other long term (current) drug therapy; Z86.73 Personal history of transient ischemic attack (TIA), and cerebral infarction without residual deficits; Z66 Do not resuscitate
CPT/HCPCS: 36415; 71046; 76770; 80053; 80061; 83036; 83690; 83735; 83880; 84100; 84443; 84484; 85025; 85610; 85730; 87811; 93005; 93306; 96365; 96366; 96367; 99285; J0360; J1643; J2270; J2470; J3475; A9270